=== PATIENT | male | born 1955 | race Caucasian/White ===

== ENCOUNTER 2022-12-06 02:29 | Day surgery (SDC) | payer OTHER, SELFPAY ==
[2022-08-07 15:06] VITALS: BMI 26.6
--- NOTE | 2022-08-08 13:00 | P.HP_ITS ---
History of Present Illness History of Present Illness Consent: Risks, benefits, and alternatives have been discussed and questions answered. Patient agrees to proceed with procedure. Chief complaint: neoplasm screening Narrative: Juan Manuel Smith is a 66 year old male referred for colon cancer screening. He has a family history of colon cancer. [facility] Past Medical History Medical History Diabetes Family history of colon cancer Hyperlipidemia Family History Family History Mother Colon cancer Social History Social History Smoking status: Never smoker Tobacco type: cigars Alcohol intake: current Drinks per week: 12 Substance use: never Substance use type: does not use Living arrangements: with family Occupation/Education: retired Gender identity (if verbalized by the patient): Male Sexual Orientation (if Verbalized by the Patient): Straight or Heterosexual Spiritual care concerns: No Agree to blood products: Yes Meds Home Medications and Allergies Home Medications Medication Instructions Recorded Confirmed Type aspirin 325 mg tablet 325 mg PO DAILY 09/24/20 08/07/22 History omega 4-kmq-blz-fish oil 1,200 mg 1,200 cap PO DAILY 09/24/20 08/07/22 History (144 mg-216 mg) capsule (Fish Oil) red yeast rice 600 mg tablet 600 mg PO DAILY 09/24/20 08/07/22 History metformin 500 mg tablet See Rx Instructions .Route 03/20/22 08/07/22 Rx .COMPLEX #90 tabs niacin 1,000 mg tablet,extended 1,000 mg PO QHS #90 tabs 03/20/22 08/07/22 Rx release rosuvastatin 40 mg tablet 40 mg PO DAILY #90 tabs 06/18/22 08/07/22 Rx B Complex-Vitamin B12 1,000 mcg PO DAILY 08/07/22 08/07/22 History cinnamon bark 500 mg capsule 500 mg PO DAILY 08/07/22 08/07/22 History (Cinnamon) [id number] 120 mcg-lutein 120 tablet PO DAILY 08/07/22 08/07/22 History 150 mcg-herb 50 mg chewable tablet (Alive Men's 50 Plus Multivitamin) vitamin E 100 unit tablet 100 unit PO DAILY 08/07/22 08/07/22 History Allergies Allergy/AdvReac Type Severity Reaction Status Date / Time No Known Allergies Allergy Verified 08/07/22 15:04 Assessment and Plan Assessment and plan (1) Screening for colon cancer: Code(s): Z12.11 - Encounter for screening for malignant neoplasm of colon Status: Acute Assessment and Plan: Colonoscopy with possible biopsy or polypectomy or cautery or injection of substances.
[2022-11-24 10:47] VITALS: BMI 26.6
--- NOTE | 2022-12-05 16:47 | PM.HPGS ---
History of Present Illness History of Present Illness Consent: Risks, benefits, and alternatives have been discussed and questions answered. Patient agrees to proceed with procedure. Chief complaint: neoplasm screening Narrative: Juan Manuel Smith is a 67 year old male referred for colon cancer screening. His mother had colon cancer. Review of Systems Review of Systems: All systems reviewed & are unremarkable except as noted in HPI and below PMFSH Past Medical History Medical History Diabetes Family history of colon cancer Hyperlipidemia Family History Family History Mother Colon cancer Social History Social History Smoking status: Never smoker Tobacco type: cigars Alcohol intake: current Drinks per week: 12 Substance use: never Substance use type: does not use Living arrangements: with family Occupation/Education: retired Gender identity (if verbalized by the patient): Male Sexual Orientation (if Verbalized by the Patient): Straight or Heterosexual Spiritual care concerns: No Agree to blood products: Yes Meds Home Medications and Allergies Home Medications Medication Instructions Recorded Confirmed Type aspirin 325 mg tablet 325 mg PO DAILY 09/24/20 12/06/22 History omega 7-zjw-gff-fish oil 1,200 mg 1,200 cap PO DAILY 09/24/20 12/06/22 History (144 mg-216 mg) capsule (Fish Oil) red yeast rice 600 mg tablet 600 mg PO DAILY 09/24/20 12/06/22 History B Complex-Vitamin B12 1,000 mcg PO DAILY 08/07/22 12/06/22 History cinnamon bark 500 mg capsule 500 mg PO DAILY 08/07/22 12/06/22 History (Cinnamon) [id number] 120 mcg-lutein 120 tablet PO DAILY 08/07/22 12/06/22 History 150 mcg-herb 50 mg chewable tablet (Alive Men's 50 Plus Multivitamin) vitamin E 100 unit tablet 100 unit PO DAILY 08/07/22 12/06/22 History rosuvastatin 40 mg tablet 40 mg PO DAILY #90 tabs 09/14/22 12/06/22 Rx metformin 500 mg tablet 500 mg PO DAILY 11/24/22 12/06/22 History Allergies Allergy/AdvReac Type Severity Reaction Status Date / Time No Known Allergies Allergy Verified 12/06/22 08:36 Exam Resp: Auscultation: clear to auscultation bilaterally Cardio: Rate: regular rate Rhythm: regular rhythm GI: GI Palp: Yes Soft to palpation and No Tenderness to palpation present (GI) Assessment and Plan Assessment and plan (1) Screening for colon cancer: Code(s): Z12.11 - Encounter for screening for malignant neoplasm of colon Status: Acute Assessment and Plan: Colonoscopy with possible biopsy or polypectomy or cautery or injection of substances.
[2022-12-06 08:38] VITALS: BP 162/76; PULSE 70; RESP 16; TEMP 36.4; O2SAT 100; BMI 26.4
[2022-12-06] MEDS: LACTATED RINGERS 1,000 ML 150 ML IV CONT (08:52)
[2022-12-06 08:53] LABS: Glucose Point of Care 115 mg/dl (65-105)
[2022-12-06 10:20] VITALS: BP 101/65; PULSE 73; RESP 24; O2SAT 100
[2022-12-06 10:30] VITALS: BP 109/76; PULSE 66; RESP 18; O2SAT 99
[2022-12-06 10:37] VITALS: BP 127/82; PULSE 61; RESP 24; O2SAT 99
== END 2022-12-06 10:55 | disposition home or self-care (01) ==
PROVIDERS: PCP Nurse Practitioner Family; Visit Provider Internal Medicine Gastroenterology
PROC: 0DJD8ZZ Inspection of Lower Intestinal Tract, Via Natural or Artificial Opening Endoscopic (ICD-10-PCS; CPT 45378; principal; 2022-12-06 10:00)
DX: Z12.11 Encounter for screening for malignant neoplasm of colon (principal); D12.5 Benign neoplasm of sigmoid colon; K57.30 Diverticulosis of large intestine without perforation or abscess without bleeding; F17.290 Nicotine dependence, other tobacco product, uncomplicated; Z80.0 Family history of malignant neoplasm of digestive organs; Z79.82 Long term (current) use of aspirin; Z79.84 Long term (current) use of oral hypoglycemic drugs
CPT/HCPCS: 45381; 82948; 88305; J2704; J7120